=== PATIENT | female | born 1945 | race Two or more races ===

== ENCOUNTER 2016-08-27 17:48 | Emergency (ER) | payer SELFPAY ==
--- NOTE | 2016-08-27 19:07 | EDPHY ---
H & P Time Seen by Provider: 08/27/16 18:45 HPI/ROS: CHIEF COMPLAINT: High blood pressure, diarrhea HISTORY OF PRESENT ILLNESS: Patient is a 71-year-old female who presents to the emergency department with elevated blood pressure. The patient is visiting from [facility] for graduation. She has been here 1 week. She she forgot her blood pressure medication. She states she takes Ziac. She also has some mild diarrhea. She denies abdominal pain. No fever or chills. No chest pain or shortness of breath. She has no headache, visual change, or focal neurologic deficits. REVIEW OF SYSTEMS: My complete review of systems is negative except as mentioned in the HPI. Past Medical/Surgical History: Includes hypertension, prediabetes Past surgical history: Includes total abdominal hysterectomy, neck surgery from trauma Social history: The patient does not smoke. Smoking Status: Never smoked Physical Exam: Vitals noted. 143/93, 108, 16, 95, 36.5 GENERAL: Well-appearing, in no acute distress, alert. HEENT: Eyes normal to inspection, normal pharynx, no signs of dehydration. NECK: No thyromegaly, no lymphadenopathy, supple. RESPIRATORY: Clear to auscultation bilaterally, no rales, rhonchi or wheezing. CVS: Regular rate and rhythm, no rubs, murmurs, or gallops. ABDOMEN: Soft, nontender, nondistended, no organomegaly. Benign BACK: Normal to inspection, no CVA tenderness. SKIN: Normal color, no rash, warm, dry. No pallor. EXTREMITIES: No pedal edema, no calf tenderness, no Homans sign or cords, no joint swelling. NEURO/PSYCH: Alert and oriented x3, normal mood and affect, normal motor sensory exam. No obvious cranial nerve deficit. Constitutional: Initial Vital Signs Temperature (C) 36.5 C 08/27/16 18:12 Heart Rate 108 H 08/27/16 18:12 Respiratory Rate 16 08/27/16 18:12 Blood Pressure 143/93 H 08/27/16 18:12 O2 Sat (%) 95 08/27/16 18:12 O2 Delivery Mode Room Air Allergies/Adverse Reactions: No Known Allergies Allergy (Unverified 08/27/16 18:12) Home Medications: Medication Instructions Recorded Hydrochlorothiazide 12.5 mg PO DAILY #3 tablet 08/27/16 Metoprolol Succinate Xr [Toprol Xl 25 mg PO DAILY #3 tab.sr 08/27/16 25 mg (*)] Medical Decision Making ED Course/Re-evaluation: In the emergency department I discussed the plan with the patient. I went evaluated her current medication. This is a combination medication of hydrochlorothiazide and bisopropol. The patient will be given a dose of hydrochlorothiazide as well as metoprolol. She will be given 3 day supply of each to supply her until she gets home. Patient was given warnings prior to leaving. She will return with worsening symptoms. Differential Diagnosis: I do not feel the patient has hypertensive urgency or emergency. I doubt acute cardiac event. I doubt CVA or dissection. Patient has had mild diarrhea. She is traveling. She will take Imodium. I do not feel she needs antibiotics for her diarrhea. She did not appear dehydrated on exam although she was mildly tachycardic on initial presentation. When I rechecked her heart rate had improved. The patient has a benign abdominal exam. I doubt surgical abdomen. Departure - Departure Disposition: Home, Routine, Self-Care Clinical Impression: Hypertension Qualifiers: Hypertension type: essential hypertension Qualified Code(s): I10 - Essential ( primary) hypertension Diarrhea Qualifiers: Diarrhea type: unspecified type Qualified Code(s): R19.7 - Diarrhea, unspecified Condition: Good Instructions: Hypertension (ED), Acute Diarrhea (ED) Additional Instructions: Return with increasing headache, weakness, numbness, tingling, visual change, chest pain, abdominal pain, fever or any other concerns. Continue to take Imodium. Follow the package directions on the Imodium. You been given blood pressure medication in the emergency department. Take your medications once daily. Do not continue these medications when she start taking her home medication. Referrals: NONE *PRIMARY CARE P,. [Primary Care Provider] - As per Instructions Print Language: Bel[place]ian
[2016-08-27] MEDS ORDERED: METOPROLOL SUCCINATE XR 25 MG TAB PO ONE (19:09)
[2016-08-27 19:36] VITALS: BP 156/86; PULSE 98; RESP 18; TEMP 97.9; O2SAT 96
[2016-08-28] MEDS ORDERED: HYDROCHLOROTHIAZIDE 12.5 MG CAP PO ONE (19:09)
== END 2016-08-27 19:43 | disposition home or self-care (01) ==
DX: I10 Essential (primary) hypertension (principal); R19.7 Diarrhea, unspecified